=== PATIENT | female | born 1960 | race Caucasian/White ===

== ENCOUNTER 2024-12-17 13:50 | Outpatient (CLI) | payer OTHER, SELFPAY ==
--- NOTE | 2024-12-17 14:00 | CRLHL7_ITS ---
For Patients: As a result of the Century Cures Act, medical imaging exams and procedure reports are released immediately into your electronic medical record. You may view this report before your referring provider. If you have questions, please contact your health care provider. BILATERAL DIGITAL SCREENING MAMMOGRAM WITH COMPUTER-AIDED DETECTION AND TOMOSYNTHESIS CLINICAL HISTORY: Routine screening exam. COMPARISON: Mammogram 08/01/2019, 07/29/2016, 03/10/2015 TECHNIQUE: Digital mammogram in CC and MLO projections including computer-aided detection (CAD) and tomosynthesis. BREAST COMPOSITION: There are scattered areas of fibroglandular density. FINDINGS: RIGHT Breast: No suspicious findings. LEFT Breast: There is a mass at approximately 12 o`clock, middle depth. IMPRESSION: LEFT breast mass. RECOMMENDATIONS: Additional mammographic views of the LEFT breast including 90 degree lateral, spot compression CC and MLO. LEFT breast ultrasound may also be required. A member of the health care team will contact the patient to schedule the required additional imaging appointment(s). BI-RADS Category 0: Incomplete: Need Additional Imaging Evaluation Dictated by Lin Awan MD @ 12/20/2024 8:03:39 AM Dictated by: Lin Awan MD @ 12/20/2024 08:04:06 (Electronically Signed)
== END 2024-12-17 13:51 | disposition home or self-care (01) ==
LOC: MAMMO 13:51
PROVIDERS: PCP Family Medicine; Visit Provider Family Medicine
DX: Z12.31 Encounter for screening mammogram for malignant neoplasm of breast (principal); N63.20 Unspecified lump in the left breast, unspecified quadrant
CPT/HCPCS: 77063; 77067

== ENCOUNTER 2025-01-03 10:29 | Outpatient (CLI) | payer OTHER, SELFPAY ==
--- NOTE | 2025-01-03 10:45 | CRLHL7_ITS ---
For Patients: As a result of the Cures Act, medical imaging exams and procedure reports are released immediately into your electronic medical record. You may view this report before your referring provider. If you have questions, please contact your health care provider. DIGITAL DIAGNOSTIC LEFT MAMMOGRAM USING TOMOSYNTHESIS LEFT BREAST ULTRASOUND CLINICAL HISTORY: LEFT breast mass/asymmetry. COMPARISON: 12/17/2024. TECHNIQUE: Digital LEFT mammogram in three projections. Tomosynthesis was used in this interpretation. Real-time ultrasound imaging of LEFT breast with imaging documentation. Scanning was performed by both the technologist and the radiologist. BREAST COMPOSITION: There are scattered areas of fibroglandular density. FINDINGS: 3D spot compression CC, 3D spot compression MLO and 3D true lateral LEFT breast mammogram images submitted. Persistent suspicious lesion in the upper breast with architectural distortion located 5 cm from the nipple. Targeted LEFT breast ultrasound performed. At 11 o`clock 5 cm from the nipple, there is a spiculated hypoechoic mass which measures 10 x 10 x 11 millimeters. No suspicious LEFT axillary lymph nodes. IMPRESSION: Suspicious 11 millimeters spiculated mass LEFT breast 11 o`clock 5 cm from the nipple. RECOMMENDATIONS: Ultrasound-guided core needle biopsy. A lay language report of this examination will be provided to the patient. BI-RADS Category 4: Suspicious Dictated by Cali Thayer MD @ 01/03/2025 11:53:26 AM jj/Dictated by: Cali Thayer MD @ 01/03/2025 11:53:00 AM (Electronically Signed)
--- NOTE | 2025-01-03 11:15 | CRLHL7_ITS ---
For Patients: As a result of the Cures Act, medical imaging exams and procedure reports are released immediately into your electronic medical record. You may view this report before your referring provider. If you have questions, please contact your health care provider. SEE DIGITAL DIAGNOSTIC LEFT MAMMMOGRAM PERFORMED SAME DAY CRL:sb basurto/Dictated by: Cali Thayer MD @ 01/03/2025 12:42:00 PM (Electronically Signed)
== END 2025-01-03 10:30 | disposition home or self-care (01) ==
LOC: MAMMO 10:30
PROVIDERS: PCP Family Medicine; Visit Provider Family Medicine
DX: N63.20 Unspecified lump in the left breast, unspecified quadrant (principal); R92.8 Other abnormal and inconclusive findings on diagnostic imaging of breast
CPT/HCPCS: 76642; 77065; G0279

== ENCOUNTER 2025-01-23 10:01 | Outpatient (CLI) | payer OTHER, SELFPAY ==
--- NOTE | 2025-01-23 10:15 | CRLHL7_ITS ---
For Patients: As a result of the Century Cures Act, medical imaging exams and procedure reports are released immediately into your electronic medical record. You may view this report before your referring provider. If you have questions, please contact your health care provider. ULTRASOUND-GUIDED BREAST BIOPSY AND POST-BIOPSY DIGITAL MAMMOGRAM FOR BIOPSY MARKER PLACEMENT CLINICAL HISTORY: Suspicious nodule. COMPARISON STUDIES: 01/03/2025. TECHNIQUE: Real-time ultrasound with image documentation was used for targeting the breast lesion. Core biopsy specimens were obtained using an automated gun with an 18-gauge biopsy needle. Post-biopsy CC and ML digital mammograms were obtained to document position of the biopsy marker. CONSENT and TIME OUT: The procedure, risks, and alternatives were explained to the patient and a consent was signed. Vincent Protocol was followed including pre-procedure verification that relevant information/documentation was available, reviewed and properly matched to the patient; consent accurate and complete; and equipment and supplies available. Time Out was conducted just prior to starting procedure to verify the four required elements: patient identity, correct side/site marked (if applicable), procedure, relevant images/results properly labeled and displayed (if applicable). PROCEDURE: The patient was positioned supine on the ultrasound table. The breast was prepped with ChloraPrep. 8 cc of 1 percent lidocaine used for local anesthesia. Core samples were obtained. A sterile metal biopsy clip was placed percutaneously to catherine the lesion position within the breast. The specimens were placed in 10% formalin and sent to the pathology department. Pressure was held on the biopsy site until all bleeding subsided. The skin incision was closed with Steri-Strips. An ice pack was positioned over the biopsy site. Post-biopsy instructions were reviewed with the patient, and a written copy was given to her. LATERALITY: LEFT breast. LESION: Hypoechoic shadowing nodule measuring 10 x 10 x 11 millimeters at 11 o`clock 5 cm from the nipple. SUSPICION FOR MALIGNANCY: High. NUMBER OF SAMPLES: 5. BIOPSY CLIP SHAPE: Oval. PROXIMITY OF CLIP TO TARGET: Within the lesion. IMPRESSION: Ultrasound-guided breast biopsy. When the pathology report is available, an addendum to this report will be made. ACR not applicable Dictated by Cali Thayer MD @ 01/23/2025 10:50:43 AM jj/Dictated by: Cali Thayer MD @ 01/23/2025 10:50:00 AM (Electronically Signed)
--- NOTE | 2025-01-23 11:00 | CRLHL7_ITS ---
For Patients: As a result of the Century Cures Act, medical imaging exams and procedure reports are released immediately into your electronic medical record. You may view this report before your referring provider. If you have questions, please contact your health care provider. SEE ULTRASOUND-GUIDED LEFT BREAST BIOPSY PERFORMED SAME DAY CRL:sb basurto/Dictated by: Cali Thayer MD @ 01/23/2025 10:53:00 AM (Electronically Signed)
== END 2025-01-23 10:02 | disposition home or self-care (01) ==
LOC: US 10:02
PROVIDERS: PCP Family Medicine; Visit Provider Family Medicine
DX: N63.20 Unspecified lump in the left breast, unspecified quadrant (principal); C50.912 Malignant neoplasm of unspecified site of left female breast
CPT/HCPCS: 19083; 77065; 88305; 88341; 88342; 88360; 88361; 88377; A4648; A4649

== ENCOUNTER 2025-02-01 06:55 | Outpatient (CLI) | payer OTHER, SELFPAY ==
--- NOTE | 2025-02-01 07:15 | MR_ITS ---
Patient: DONAL AGUIRRE Facility:?[facility] Patient ID:?[id number] Site Patient ID:?[id number]. Site :?[id number] Study:?MRI-Breast Bilateral W/WO 20 CC DOTAREM-02/01/2025 9:40:21 AM Ordering Physician:Val Al Final Report: BILATERAL BREAST MRI WITHOUT AND WITH GADOLINIUM, 02/01/2025 CLINICAL HISTORY: 64-year-old with recent diagnosis of LEFT breast invasive ductal carcinoma at the 11 o`clock location, 5 cm from nipple, measuring 1.0 x 1.0 x 1.1 cm on ultrasound. INDICATION FOR BREAST MRI: Staging of newly diagnosed breast cancer and screening of contralateral breast. Regional lymph nodes will also be assessed. COMPARISON STUDIES: Screening mammogram 12/17/2024. Left diagnostic mammogram and ultrasound 8 12/16/2024. Ultrasound-guided needle core biopsy 01/23/2025. CONTRAST: 20 mL Dotarem IV. TECHNIQUE: The patient was positioned prone using a breast coil. Multiple imaging sequences were obtained using 1-1.5 mm thick slices with no gap. The image sequences include T2-weighted STIR in the axial plane, T1-weighted nonfat-saturated gradient echo in the axial plane, pre- and post-contrast T1-weighted FLASH 3D with fat suppression in the axial plane, and T1-weighted FLASH high resolution 3D with fat suppression in the sagittal plane. Image post-processing was performed on a [employer] workstation. Complex 3D rendering including maximum intensity projections (MIPS) and volumetric renderings were obtained to optimize visualization of the extent of pathology and relationship to the nipple, skin, and chest wall. This aids in determining feasibility of breast conservation surgery. Subtraction, multiplanar reconstruction, mean curve determination, and angiogenesis mapping were also performed. The study was technically adequate. FINDINGS: Amount of Fibroglandular Tissue: Scattered fibroglandular tissue. Breast Background Enhancement: Mild. RIGHT Breast: No suspicious mass or non-mass enhancement. LEFT Breast: 11 o`clock, 7 cm from nipple: 1.4 x 1.5 x 1.2 cm irregular enhancing mass with irregular margins with associated biopsy clip artifact. Heterogeneous enhancement including initial rapid uptake and delayed washout kinetics. 12 o`clock, 5 cm from nipple: 2.8 x 2.6 x 3.6 cm non-mass enhancement extending anterolateral from the biopsied mass. Heterogeneous enhancement kinetics, including rapid uptake and delayed washout kinetics. Lymph Nodes: LEFT axilla: 1.4 cm x 0.9 cm lymph node in the superior LEFT axilla with possible cortical thickening. 1.0 cm lymph node in mid LEFT axilla with possible cortical thickening. There are a few smaller lymph nodes in the inferior axilla, without visualization of fatty homa. No right axillary lymphadenopathy. No internal mammary lymphadenopathy. IMPRESSIONS AND RECOMMENDATIONS: 1. 1.5 cm biopsied irregular enhancing mass left 11 o`clock, 7 cm from nipple. 2. Extending anterolateral from the biopsied mass is a suspicious 2.8 x 2.6 x 3.6 cm area of non-mass enhancement at the 12 o`clock location, 5 cm from nipple. Recommend ultrasound with possible ultrasound-guided needle core biopsy. If this cannot be visualized, then MRI-guided needle core biopsy is recommended. 3. Recommend left axillary ultrasound for further characterization of possible lymphadenopathy. Ultrasound guided needle core biopsy may be performed if clinically indicated. BI-RADS Category 4: Suspicious Dictated by Omayra Chamorro MD @ 02/01/2025 2:13:36 PM CRL/garrett DW/Dictated by: Omayra Chamorro MD @ 02/01/2025 2:13:00 PM (Electronic Signature)
--- NOTE | 2025-02-05 16:01 | ONC.NURNOTE ---
Plan of care - continuing work-up and consults 02/[address] [facility] [place] 02/13 US/US Bx breast and axilla based on MRI findings 02/19 Surgical Consult - Dr. Siegel 1400 at [facility] 02/25 Med Onc Consult - Dr. Maya 1000 at [facility] Reviewed with pt via phone.
== END 2025-02-01 06:56 | disposition home or self-care (01) ==
LOC: MRI 06:55
PROVIDERS: PCP Family Medicine; Visit Provider Surgery
DX: C50.912 Malignant neoplasm of unspecified site of left female breast (principal); Z17.421 Hormone receptor negative with human epidermal growth factor receptor 2 negative status; R59.1 Generalized enlarged lymph nodes
CPT/HCPCS: 77049; C8908; C8937; A9575

== ENCOUNTER 2025-02-28 06:58 | Outpatient (CLI) | payer OTHER, SELFPAY ==
--- NOTE | 2025-02-28 07:15 | CRLHL7_ITS ---
For Patients: As a result of the Century Cures Act, medical imaging exams and procedure reports are released immediately into your electronic medical record. You may view this report before your referring provider. If you have questions, please contact your health care provider. INDICATION: Breast cancer. COMPARISON: 09/06/2013. TECHNIQUE: Multiplanar T1, T2, FLAIR and diffusion-weighted imaging.. Post gadolinium T1 weighted sequences. Gadolinium 20 cc IV. FINDINGS: Normal brain parenchymal morphology and signal intensity. No intracranial hemorrhage. No abnormal ventricular dilatation. Intracranial vascular flow voids are preserved. No mass effect or midline shift. No restricted diffusion to suggest acute ischemia. No susceptibility artifact of remote hemorrhage. No abnormal enhancement or enhancing lesions within the brain parenchyma. Bilateral orbits are unremarkable. Normal appearing sella. Mild mucosal thickening within the ethmoid air cells. Remaining visualized paranasal sinuses and mastoid air cells are unremarkable. IMPRESSION: 1. No acute intracranial abnormality. 2. Normal brain parenchymal morphology and signal intensity. 3. No acute or chronic intracranial hemorrhage 4. No abnormal enhancement or enhancing lesions. No intracranial metastases Dictated by Cyrus Morales MD @ 02/28/2025 2:08:07 PM (Electronically Signed)
== END 2025-02-28 06:59 | disposition home or self-care (01) ==
LOC: MRI 06:59
PROVIDERS: PCP Family Medicine; Visit Provider Internal Medicine Hematology & Oncology
DX: C50.919 Malignant neoplasm of unspecified site of unspecified female breast (principal); Z17.421 Hormone receptor negative with human epidermal growth factor receptor 2 negative status
CPT/HCPCS: 70553; A9575

== ENCOUNTER 2025-03-01 12:25 | Outpatient (CLI) | payer OTHER, SELFPAY | END 2025-03-01 12:26 | disposition home or self-care (01) | LOC: RAD 12:25 | PROVIDERS: PCP Family Medicine; Visit Provider Internal Medicine Hematology & Oncology | DX: C50.919 Malignant neoplasm of unspecified site of unspecified female breast (principal); I51.7 Cardiomegaly; Z51.81 Encounter for therapeutic drug level monitoring; Z79.899 Other long term (current) drug therapy | CPT/HCPCS: 93306 ==

== ENCOUNTER 2025-03-04 08:10 | Day surgery (SDC) | payer OTHER, SELFPAY ==
[2025-03-04 08:37] VITALS: BMI 39.6
[2025-03-04 08:39] VITALS: BP 169/78; PULSE 61; RESP 20; TEMP 36.7; O2SAT 97
[2025-03-04] MEDS: SODIUM CHLORIDE 0.9 % (FLUSH) 10 ML SYRINGE IVF (08:51)
[2025-03-04] MEDS: LACTATED RINGERS 1000 ML 1,000 ML 100 ML IV (08:51)
--- NOTE | 2025-03-04 08:58 | SUR.PREOP ---
lab will draw pottassium as per request from Dr. Gonzales. Will report results to Dr. Gonzales for follow up.
--- NOTE | 2025-03-04 09:19 | CRLHL7_ITS ---
For Patients: As a result of the Century Cures Act, medical imaging exams and procedure reports are released immediately into your electronic medical record. You may view this report before your referring provider. If you have questions, please contact your health care provider. INDICATION Port-A-Cath placement. FINDINGS Fluoroscopy time: 24.5 seconds. There is an infusion port and central line noted on C-arm imaging with fluoroscopy time reported above. The catheter tip appears to be near the distal superior vena cava level. PRADEEP MAST MD, FACR Pediatric/Diagnostic Radiologist Cardiothoracic Imaging [email or web address] Transcribed: 12:[address]/Dictated by: Pradeep Mast MD @ 03/04/2025 11:49:00 AM (Electronically Signed)
[2025-03-04] MEDS: BUPIVACAINE 0.5% 30 ML INJECTION (09:21)
--- NOTE | 2025-03-04 09:29 | W.PM.H&PU ---
History & Physical Update History & Physical Update H&P Reviewed and patient assessed: No changes noted
--- NOTE | 2025-03-04 09:29 | PM.GSPRC ---
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 Neoadjuvant chemotherapy is planned. A port was requested by Oncology. After discussion of risks and benefits, the patient is agreeable to proceed. Procedure Description: After discussing the risks and benefits of the procedure, the patient signed informed consent.? The operative site was marked and the patient was brought to the operating room and placed on the operating table in supine position.? Care was taken to pad the patient's pressure points.?? The patient was then given sedation by anesthesia.?? The operative site was then prepped and draped in the usual sterile fashion.? A time-out was then performed. The patient's right internal jugular vein was visualized using ultrasound. Local anesthetic was injected into the skin overlying the vein. This was accessed percutaneously using ultrasound guidance. Using Seldinger technique, a guidewire was threaded through the needle. A skin gene was made around the wire. Next, local anesthetic was injected into the skin below the clavicle and along the proposed tract to the neck incision. A skin incision was then made with a 15 blade and a pocket created in the subcutaneous tissue with cautery. A tunneler was then used to thread the catheter from the chest wall pocket to the neck incision. Once this was done fluoroscopy was brought into the field. Over the wire the tract was dilated using fluoroscopy. The wire and the dilator were then removed leaving the sheath in the vein. Through this, the catheter was threaded. Using fluoroscopy, the catheter was positioned into the distal SVC. The catheter was noted to flush and aspirate easily. The catheter was then connected to the port. The port was placed in the pocket and secured in place with 2 0 Prolene sutures. It was noted to flush and aspirate easily. This was then locked with heparinized saline. The skin was closed with absorbable suture. Sterile dressings were applied. Instrument sponge and needle counts were correct at the end of the case. The patient was woken and taken to the recovery area in stable condition. ? The patient tolerated the procedure well. Findings: Right IJ power port placed in the low SVC Anesthesia: MAC Surgeon: Mikaela Siegel MD Estimated blood loss (mL): 10 Condition: stable Disposition: same day
[2025-03-04 09:30] LABS: Potassium* 3.9 mmol/L (3.6-5.1)
--- NOTE | 2025-03-04 09:31 | CRLHL7_ITS ---
For Patients: As a result of the Century Cures Act, medical imaging exams and procedure reports are released immediately into your electronic medical record. You may view this report before your referring provider. If you have questions, please contact your health care provider. Indication: Status post Port-A-Cath Technique: Chest 1 view Comparison: None Findings/Impression: Cardiovascular and mediastinum: Mild cardiomegaly with right-sided Port-A-Cath with tip in the proximal right atrium. Lungs and pleural space: No pleural effusion or pneumothorax. Low lung volumes with mild pulmonary cephalization. Bones and soft tissues: No acute findings. Dictated by Gómez Vazquez MD @ 03/04/2025 11:08:01 AM (Electronically Signed)
--- NOTE | 2025-03-04 09:57 | P.ANES_ITS ---
Anesthesia Charges Start Date/Time Anesthesia Start Date: 03/04/25 Anesthesia Start Time: 09:38 Stop Date/Time Anesthesia Stop Date: 03/04/25 Anesthesia Stop Time: :38 Coding CPT Codes CPT Codes: ANESTH VASCULAR ACCESS - 62812 ([id number]) P3 - PATIENT W/SEVERE SYS DISEASE, QK - PLANNING INTERN 2-4 CNCRNT ANES PROC, QX - ASSOCIATE PROFESSOR OF ARCHAEOLOGY SVC W/ MD MED DIRECTION
--- NOTE | 2025-03-04 09:57 | W.ANESCHARGE ---
Anesthesia Charges Start Date/Time Anesthesia Start Date: 03/04/25 Anesthesia Start Time: 09:38 Stop Date/Time Anesthesia Stop Date: 03/04/25 Anesthesia Stop Time: :38 Coding CPT Codes CPT Codes: ANESTH VASCULAR ACCESS - 23655 ([id number]) P3 - PATIENT W/SEVERE SYS DISEASE, QK - VENEER DRIER TAILER 2-4 CNCRNT ANES PROC, QX - THIOKOL OPERATOR SVC W/ MD MED DIRECTION
[2025-03-04] MEDS: 0.9% SODIUM CHL 50 ML VIAL INJECTION (10:21)
[2025-03-04] MEDS: HEPARIN 500 UNIT/5 ML SYRINGE IVF (10:21)
[2025-03-04] MEDS: LIDOCAINE 1% MDV 20 ML INJECTION (10:21)
[2025-03-04 10:40] VITALS: BP 154/76; PULSE 55; RESP 20; TEMP 36.4; O2SAT 98
--- NOTE | 2025-03-04 10:43 | P.ANES_ITS ---
Anesthesia Charges Start Date/Time Anesthesia Start Date: 03/04/25 Anesthesia Start Time: 09:38 Stop Date/Time Anesthesia Stop Date: 03/04/25 Anesthesia Stop Time: :38 Coding CPT Codes CPT Codes: ANESTH VASCULAR ACCESS - 52006 ([id number]) P3 - PATIENT W/SEVERE SYS DISEASE, QK - AGRICULTURAL EQUIPMENT SALES ENGINEER 2-4 CNCRNT ANES PROC, QX - PHARMACIST PER DIEM SVC W/ MD MED DIRECTION
--- NOTE | 2025-03-04 10:43 | W.ANESCHARGE ---
Anesthesia Charges Start Date/Time Anesthesia Start Date: 03/04/25 Anesthesia Start Time: 09:38 Stop Date/Time Anesthesia Stop Date: 03/04/25 Anesthesia Stop Time: :38 Coding CPT Codes CPT Codes: ANESTH VASCULAR ACCESS - 49801 ([id number]) P3 - PATIENT W/SEVERE SYS DISEASE, QK - NAILHEAD PUNCHER 2-4 CNCRNT ANES PROC, QX - UNDER WATER ASSISTANT SVC W/ MD MED DIRECTION
[2025-03-04 10:55] VITALS: BP 137/71; PULSE 55; RESP 20; O2SAT 97
[2025-03-04 11:26] VITALS: BP 147/90; PULSE 65; RESP 20; TEMP 36.5; O2SAT 98
[2025-03-04 11:48] VITALS: BP 164/92; PULSE 68; RESP 20; O2SAT 98
== END 2025-03-04 12:13 | disposition home or self-care (01) ==
PROVIDERS: PCP Family Medicine; Visit Provider Surgery
PROC: (CPT 36561; principal; 2025-03-04 09:30)
DX: Z45.2 Encounter for adjustment and management of vascular access device (principal); C50.812 Malignant neoplasm of overlapping sites of left female breast; Z17.1 Estrogen receptor negative status [ER-]; Z17.32 Human epidermal growth factor receptor 2 negative status; Z17.22 Progesterone receptor negative status
CPT/HCPCS: 36561; 00532; 36415; 71045; 76998; 84132; J2003; C1788; J0665; J0690; J1100; J1642; J2405; J2704; J3490; J7120